=== PATIENT | male | born 1940 | race Caucasian/White ===

== ENCOUNTER → 2018-07-10 | Outpatient (CLI) | payer MEDICARE, BC ==
[~2018-07-10] MED LIST: AMLODIPINE-BEN1 EAC3 PO; ASPIRIN81 MG PO; BAYER ASPIRIN PO; BYSTOLIC10 MG PO; CELEBREX100 MG PO; CRESTOR10 MG PO; CYCLOBENZAPRINE5 MG PO; DIATRIZOATE MEGL/DIATRIZOA SOD 30 ML BTL PO ONE; FENOFIBRATE145 MG PO; HYDROCHLOROTHIA25 MG PO; IOPAMIDOL 370 MG/ML 200 ML INFUS..BTL INJ ONE; MELOXICAM7.5 MG PO; NAPROXEN250 MG PO; NORCO 7.5-3251 EACH PO; OMEPRAZOLE40 MG PO; RANITIDINE HCL150 MG PO; SODIUM CHLORIDE 0.9% 50ML 50 ML ONE; SPIRONOLACTONE25 MG PO; TEMAZEPAM15 MG PO; TYLENOL WITH C1 EACH PO; ULTRAM 50MG50 MG PO; ZETIA10 MG PO; ZOLPIDEM TARTRA10 MG PO
[2018-07-10 17:40] LABS: BLOOD UREA NITROGEN 14 mg/dL (7-26); BUN/CREATININE RATIO 13 (6-25); CREATININE, SERUM 1.12 mg/dL (0.72-1.25); EST GLOMERULAR FILTRATION RATE > 60 ML/MIN (60-)
--- NOTE | 2018-07-10 19:33 | Diagnostic Imaging Report ---
EXAM: CT Abdomen and Pelvis WITH contrast INDICATION: Abdominal pain. COMPARISON: None. TECHNIQUE: Abdomen and pelvis were scanned utilizing a multidetector helical scanner from the lung base to the pubic symphysis after administration of IV contrast. Coronal and sagittal reformations were obtained. Routine protocol was performed. Scan was performed when during portal venous phase. IV CONTRAST: 100 cc [id number] ORAL CONTRAST: 30 cc Gastroview diluted in water. RADIATION DOSE: Total DLP: 780.62 mGy*cm Estimated effective dose: (DLP x 0.015 x size factor) mSv COMPLICATIONS: None FINDINGS: LINES and TUBES: None. LOWER THORAX: Unremarkable HEPATOBILIARY: No focal hepatic lesions. No biliary ductal dilation. GALLBLADDER: Surgically absent. SPLEEN: No splenomegaly. PANCREAS: No focal masses or ductal dilatation. ADRENALS: No adrenal nodules KIDNEYS/URETERS: Kidneys enhance symmetrically. No hydronephrosis. 1.5 cm low-attenuation exophytic of the anterior lower pole of the right kidney on image 38 series 2. Multiple small left parapelvic cysts. No stones. GI TRACT: No abnormal distention, wall thickening, or evidence of bowel obstruction. A few small lymph nodes scattered throughout the descending sigmoid colon without diverticulitis. Appendix is normal. PELVIC ORGANS/BLADDER: The prostate is enlarged measuring 6.1 cm in transverse dimension. Multiple phleboliths scattered throughout the pelvis. LYMPH NODES: No lymphadenopathy. VESSELS: There is mild atherosclerotic disease in the aorta and major arterial branches. PERITONEUM / RETROPERITONEUM: No free air or fluid. BONES: There are degenerative changes in the lumbar spine. Mild retrolisthesis of L2 in relation to L3, and L3 in relation to L4. Lower lumbar hemilaminectomies. SOFT TISSUES: Unremarkable. IMPRESSION: 1. No acute abdominal pelvic abnormality. 2. Mild colonic diverticulosis without acute diverticulitis. 3. Status post cholecystectomy. No significant biliary dilatation. 4. Mildly enlarged prostate. Signed by: Dr. Ban Gordillo M.D. on 07/10/2018 7:30 PM
== END ==
LOC: CT 16:37
PROVIDERS: ATTEND Internal Medicine
DX: R10.9 Unspecified abdominal pain (principal)
CPT/HCPCS: 36415; 74177; 82565; 84520; Q9967

== ENCOUNTER → 2019-02-18 | Outpatient (CLI) | payer MEDICARE, BC ==
[~2019-02-18] MED LIST changes: -DIATRIZOATE MEGL/DIATRIZOA SOD 30 ML BTL PO ONE; -IOPAMIDOL 370 MG/ML 200 ML INFUS..BTL INJ ONE; -SODIUM CHLORIDE 0.9% 50ML 50 ML ONE
--- NOTE | 2019-02-18 12:23 | Diagnostic Imaging Report ---
EXAMINATION: Renal ultrasound. CLINICAL HISTORY :Renal cyst COMPARISON: CT abdomen and pelvis with contrast 07/10/2018 TECHNIQUE: Grayscale and color Doppler evaluation of the kidneys and bladder was performed in transverse and longitudinal planes. DISCUSSION: RIGHT KIDNEY: The right kidney measures 10.2 cm in length and shows normal echogenicity. 2 x 1.8 x 2 cm exophytic cyst projecting from the lower pole as seen on comparison CT. No solid mass or hydronephrosis. LEFT KIDNEY: The left kidney measures 9.7 cm in length and shows normal echogenicity. Small shadowing calculus in the interpolar region. Questionable hypoechoic lesion versus lobulation of the renal contour in the interpolar region measuring 2 x 1.4 x 2.4 cm. BLADDER: Unremarkable. Right and left ureteral jets are identified. IMPRESSION: Unchanged exophytic right lower pole renal cyst. Questionable hypoechoic lesion versus lobulation of the interpolar left kidney; no abnormality was identified on comparison CT scan. Repeat CT of the abdomen or abdominal MRI with and without contrast (renal mass protocol) is suggested. Signed by: Dr. Yassine Curtis M.D. on 02/18/2019 12:20 PM
== END ==
LOC: US 10:33
PROVIDERS: ATTEND Urology
DX: N28.1 Cyst of kidney, acquired (principal)
CPT/HCPCS: 76770

== ENCOUNTER → 2020-11-23 | Outpatient (CLI) | payer MEDICARE, OTHER | LOC: US 13:29 | PROVIDERS: ATTEND Urology | DX: N28.1 Cyst of kidney, acquired (principal) | CPT/HCPCS: 76770 ==